=== PATIENT | female | born 1990 | race Caucasian/White ===

== ENCOUNTER 2018-10-31 12:17 | Emergency (ER) | payer MEDICAID ==
[~2018-10-31] VITALS: Ht 170.2 cm; Wt 61.4 kg
[~2018-10-31 12:17] MED LIST: HYDROCODONE-APA1 TAB PO
[2018-10-31 12:25] VITALS: Ht 170.2 cm; Wt 61.4 kg
[2018-10-31] MEDS ORDERED: SEROQUEL25 MG PO (12:28)
[2018-10-31] MEDS ORDERED: TORADOL10 MG PO (17:51)
[2018-10-31 19:12] VITALS: BP 113/87
[2018-11-06] MEDS ORDERED: KLONOPIN0.5 MG PO (15:00)
== END 2018-10-31 19:13 | disposition home or self-care (01) ==
LOC: D.ER 12:17
DX: S00.11XA Contusion of right eyelid and periocular area, initial encounter (principal); Y04.2XXA Assault by strike against or bumped into by another person, initial encounter; Y93.89 Activity, other specified; Y92.019 Unspecified place in single-family (private) house as the place of occurrence of the external cause; S62.304A Unspecified fracture of fourth metacarpal bone, right hand, initial encounter for closed fracture; S61.012A Laceration without foreign body of left thumb without damage to nail, initial encounter

== ENCOUNTER 2018-11-07 11:44 | Day surgery (SDC) | payer MEDICAID ==
[~2018-11-07] VITALS: Ht 170.2 cm; Wt 61.2 kg
[~2018-11-07 11:44] MED LIST changes: +KLONOPIN0.5 MG PO; +SEROQUEL25 MG PO; +TORADOL10 MG PO
[2018-11-07 12:14] LABS: MCH 31.2 pg (26.0-34.0); MCHC 33.3 g/dL (31.0-37.0); MCV 93.5 fL (80.0-100.0); MEAN PLATELET VOLUME 10.7 fL (7.4-10.4); RBC 4.49 10x6/uL (4.00-5.40); RDW 14.8 % (11.5-14.5); WBC 9.2 10x3/uL (4.8-10.8)
[2018-11-07 13:09] VITALS: BP 120/86; Ht 170.2 cm; Wt 61.2 kg
[2018-11-07] MEDS ORDERED: HYDROCODON-ACE1 EA10 PO (15:29)
--- NOTE | 2018-11-07 15:43 | NUR ---
ANESTHESIA REPORTED SHORT STAY IN [facility]
--- NOTE | 2018-11-09 09:48 | OP ---
PATIENT NAME: NUNU CHINCHILLA MEDICAL RECORD: [id number] :89 LOCATION:[facility] ADMISSION DATE: SURGEON: JOSÉ MIGUEL AVILA MD DATE OF OPERATION: 11/07/2018 PREOPERATIVE DIAGNOSIS: Displaced right fifth metacarpal fracture. POSTOPERATIVE DIAGNOSIS: Displaced right fifth metacarpal fracture. PROCEDURE: Open reduction internal fixation of displaced right fourth metacarpal midshaft fracture. SURGEON: José Miguel Avila MD ANESTHESIA: General. INTRAOPERATIVE COMPLICATIONS: None. SUMMARY OF PATHOLOGIC FINDINGS: The patient was indeed found to have a displaced midshaft fracture that reduced nicely and was amenable to plate fixation with the VariAx 2.3 double row plate system. OPERATIVE SUMMARY IN DETAIL: After obtaining the appropriate preoperative orthopedic surgery consent as well as anesthetic consultation, evaluation and clearance, the patient was brought to the operating room and placed on the operating table in supine position. After general laryngeal mask airway was administered, tourniquet was placed over the proximal aspect of the right upper extremity. Right upper extremity was then prepped and draped in routine sterile fashion. The arm was elevated and exsanguinated. Tourniquet inflated to 250 mmHg. Mid linear incision was taken down and gently moved to the periosteum. The periosteum was elevated. Fracture was identified. Interposed hematoma was removed. The fracture was reduced and held in reduction in place while the plate was applied under fluoroscopic guidance. After combination of both compression and locking screws were applied by the 2 x 4 double row 2.3 plate, radiographs were taken and submitted for radiologist for final review. Wound was then irrigated and closed with 2-0 Vicryl followed by 4-0 Prolene. Sterile dressings were applied. Tourniquet was deflated. The patient was awakened and taken to the recovery room in stable condition. All final needle and sponge counts were correct. TRANSINT:[id number] Voice Confirmation ID: [id number] DOCUMENT ID: [id number] MARGARITA PETIT, JOSÉ MIGUEL STERN at 0948 CC: [id number] DICTATION DATE: 11/07/18 1532 BUFFING WHEEL PRESSER: 11/07/18 2250 [facility] 11/07/18 [place] [address]
== END 2018-11-07 17:20 | disposition home or self-care (01) ==
LOC: D.OPS 11:44 → D.PAN 13:45 → D.OPS 17:20 → D.PAN 18:50 → D.OPS 18:50 → D.PAN 20:30
PROVIDERS: Anesthesiology; ATTEND Orthopaedic Surgery
DX: S62.326A Displaced fracture of shaft of fifth metacarpal bone, right hand, initial encounter for closed fracture (principal); Z01.812 Encounter for preprocedural laboratory examination; X58.XXXA Exposure to other specified factors, initial encounter

== ENCOUNTER 2019-06-16 08:20 | Emergency (ER) | payer MEDICAID ==
[~2019-06-16] VITALS: Ht 170.2 cm; Wt 65.0 kg
[~2019-06-16 08:20] MED LIST changes: +HYDROCODON-ACE1 EA10 PO
[2019-06-16 08:32] VITALS: BP 132/75; Ht 170.2 cm; Wt 65.0 kg
[2019-06-16] MEDS ORDERED: PHENERGAN25 M1 PO (08:35)
[2019-06-16] MEDS ORDERED: HYDROCODONE-A1 UDTA2 PO (09:05)
== END 2019-06-16 09:35 | disposition home or self-care (01) ==
LOC: D.ER 08:20
DX: M25.571 Pain in right ankle and joints of right foot (principal); S99.911A Unspecified injury of right ankle, initial encounter; W19.XXXA Unspecified fall, initial encounter

== ENCOUNTER 2019-07-26 01:59 | Inpatient (IN) | payer MEDICAID ==
[~2019-07-26] VITALS: Ht 170.2 cm; Wt 69.1 kg
[~2019-07-26 01:59] MED LIST changes: +HYDROCODONE-A1 UDTA2 PO; +PHENERGAN25 M1 PO
[2019-07-26] MEDS ORDERED: PRENAVITE1 TAB PO (02:28)
[2019-07-26 02:46] LABS: UDS - AMPHET NEGATIVE QUAL (NEGATIVE); UDS - BARB NEGATIVE QUAL (NEGATIVE); UDS - BENZO NEGATIVE QUAL (NEGATIVE); UDS - COCAINE NEGATIVE QUAL (NEGATIVE); UDS - OPIATE NEGATIVE QUAL (NEGATIVE); UDS - PCP NEGATIVE QUAL (NEGATIVE); UDS - THC NEGATIVE QUAL (NEGATIVE)
[2019-07-26 02:50] LABS: APPEARANCE CLOUDY (CLEAR); BACTERIA MANY /hpf (NEGATIVE); BILIRUBIN NEGATIVE (NEGATIVE); COLOR YELLOW (YELLOW); EPITHELIAL CELLS 0-5 /hpf (0-5); GLUCOSE NEGATIVE (NEGATIVE); KETONE MODERATE mg/dL (NEGATIVE); NITRITE POSITIVE (NEGATIVE); PROTEIN 2+ mg/dL (NEGATIVE); SPECIFIC GRAVITY 1.015 (1.005-1.020); UROBILINOGEN NORMAL (NORMAL); WHITE CELLS - URINE >50 /hpf (NEGATIVE)
--- NOTE | 2019-07-26 03:51 | NUR ---
REQUESTING TYLENOL FOR INCREASING BACK PAIN THAT WAS INITIALLY 02/10 [address] 03/[address] ANDERSEN PAGED TO REPORT REQUEST AND NOTIFY THAT ROCEPHIN WAS AVAILABLE ORDERED.
--- NOTE | 2019-07-26 04:06 | NUR ---
20 G PIV STARTED TO LT FA, CBC OBTAINED PER ORDER AND SENT TO LAB. SECURED WITH TEGADERM AND TAPE. TOLERATED WELL.
--- NOTE | 2019-07-26 04:06 | NUR ---
DR. ANDERSEN REBEEPED.
--- NOTE | 2019-07-26 04:17 | NUR ---
DR. ANDERSEN REPAGED TO REPORT PT REQUEST FOR TYLENOL.
[2019-07-26 04:42] LABS: BASOPHILS 0.1 % (0-2); HEMATOCRIT 31.8 % (36.0-48.0); HEMOGLOBIN 10.9 g/dL (12-16); IMMATURE GRANULOCYTES 0.2 % (0-5); LYMPHOCYTES 10.4 % (15-50); MCH 31.5 pg (26.0-34.0); MCHC 34.3 g/dL (31.0-37.0); MCV 91.9 fL (80.0-100.0); MEAN PLATELET VOLUME 10.8 fL (7.4-10.4); MONOCYTES 5.8 % (2-11); NEUTROPHILS 82.5 % (40-80); RBC 3.46 10x6/uL (4.00-5.40); RDW 13.3 % (11.5-14.5); WBC 14.6 10x3/uL (4.8-10.8)
--- NOTE | 2019-07-26 04:47 | NUR ---
RESTING WITH EYES CLOSED IN SEMI FOWLERS POSITION. RESP REGULAR AND UNLABORED, NO S/S OF DISTRESS NOTED. BED IN LOW POSITION WITH SRUP X2. CALL LIGHT AND PHONE WITHIN REACH.
[2019-07-26 04:50] VITALS: BP 112/77; Ht 170.2 cm; Wt 69.1 kg
[2019-07-26 04:56] LABS: PLATELET COUNT 206 10x3/uL (130-400)
--- NOTE | 2019-07-26 05:08 | NUR ---
D5 1/2NS BOLUS COMPLETED. NS HUNG TO INFUSE AT 125 MLS/HR PER ORDER. PT EDUCATED ON PURPOSE OF IVF'S. VERBALIZES UNDERSTANDING. SITTING UP IN BED EATING SANDWICH AND LOOKING AT CELL PHONE. BED IN LOW POSITION WITH SRUP X2. WARM BLANKETS AND EXTRA PILLOWS PROVIDED PER PT REQUEST. CALL LIGHT AND PHONE WITHIN REACH.
--- NOTE | 2019-07-26 05:18 | NUR ---
PT CALLS RN TO ROOM, C/O BEING NAUSEOUS. ORDERS REC'D FOR ZOFRAN 4 MG IVP [id number] NAUSEA/VOMITING.
--- NOTE | 2019-07-26 05:29 | NUR ---
BRODY GIVEN IVP PER ORDER. PT EDUCATED ON MED. REPORTS THAT BACK IN "SLIGHTLY BETTER BUT WAS WORSE WHEN SHE VOIDED." STATES THAT PAIN IS 5-6/10. REPORTS THAT SHE IS UNABLE TO FALL ASLEEP D/T PAIN. WILL REPORT TO DR. ANDERSEN. BED IN LOW POSITION WITH SRUPX2. CALL LIGHT AND PHONE WITHIN REACH.
--- NOTE | 2019-07-26 05:37 | NUR ---
DR. ANDERSEN PAGED TO REPORT PT CONTINUED C/O PAIN FOLLOWING TYLENOL.
--- NOTE | 2019-07-26 05:40 | NUR ---
CALL BACK TO UNIT REC'D FROM DR. ANDERSEN. REPORT GIVEN REGARDING PT CONTINUED C/O BACK PAIN AND INTERVENTIONS DONE UP TO THIS TIME INCLUDING REPOSITIONING, PROVIDING EXTRA PILLOWS AND WARM BLANKETS TO BACK, AND TYLENOL BEING GIVEN. ORDERS REC'D TO CONTINUE WITH CURRENT INTERVENTIONS AND THAT PT MAY ALSO TAKE WARM SHOWER AND TO REINFORCE THAT BACK PAIN WILL DECREASE PYLO STARTS TO IMPROVE.
--- NOTE | 2019-07-26 05:56 | NUR ---
POC DISCUSSED WITH PT, VERBALIZES UNDERSTANDING AND DENIES QUESTIONS. STATES THAT PAIN IS GETTING "SOME BETTER" AND SHE JUST WANTS TO REST FOR NOW. DENIES ADDITIONAL NEEDS. DENIES NAUSEA. BED IN LOW POSITION WITH SRUPX2. CALL LIGHT AND PHONE WITHIN REACH. WILL CONTINUE TO MONITOR.
[2019-07-26 07:32] VITALS: BP 100/60
--- NOTE | 2019-07-26 07:40 | NUR ---
AM ASSESSMENT COMPLETED, VSS, AFEBRILE, RESP EVEN AND UNLABORED, LUNGS CTAB, HEART RRR, TACHYCARDIC AT 105. ABD SOFT AND NONTENDER TO LIGHT PALPATION, GRAVID. SKIN PALE, WARM AND DRY, NO VAGINAL BLEEDING, NO CONTRACTIONS, DOES REPORT RIGHT-SIDED BACK PAIN/FLANK PAIN. PIV SITE TO LEFT FOREARM CLEAN, DRY, INTACT WITH TRANSPARENT BIOOCCLUSIVE DRESSING, PATENT, AND WITHOUT S/SX INFECTION OR INFILTRATION. TOLERATING PO FLUIDS, RELATES SOME NAUSEA BUT TOLERATING REGULAR DIET PROVIDED THIS AM. LIGHTS DIMMED PER PT REQUEST, SIDE RAILS UP X2, BED IN LOW POSITION, BED BRAKES LOCKED, CALL LIGHT AND PERSONAL BELONGINGS WITHIN EASY REACH OF PT. WILL MONITOR FOR CHANGE IN STATUS. REVIEWED PLAN OF CARE, PT STATES UNDERSTANDING OF ALL INFORMATION PROVIDED.
--- NOTE | 2019-07-26 08:45 | NUR ---
PT C/O RIGHT-SIDED FLANK PAIN AND REQUESTING PAIN MEDICATION. STATES "IF ALL I AM GOING TO GED IS TYLENOL I CAN JUST GO HOME AND SLEEP THERE". REVIEWED MD ORDERS, FREQUENCY OF ADMINISTRATION AND NEXT DOSE AVAILABLE, RATIONALE OF MED ORDERS AND NEED FOR IV FLUIDS. BREAKFAST TRAY REMOVED FROM ROOM, CONSUMED 100% MEAL. PT STATES UNDERSTANDING OF INFORMATION PROVIDED, LIGHTS DIMMED PER REQUEST, DENIES OTHER NEEDS OR CONCERNS AT THIS TIME, CALL LIGHT IN EASY REACH. CONTINUE TO MONITOR.
--- NOTE | 2019-07-26 09:47 | NUR ---
rounds completed. pt resting in left lateral position with lights off in room. resp even and unlabored, eyes closed. call light in easy reach. alex, with case management, to pt room after reviewing pt history per records. will monitor.
--- NOTE | 2019-07-26 09:58 | NUR ---
PT C/O BACK/FLANK PAIN TO RIGHT SIDE RATED 7 OF 10 ON NUMERIC PAIN SCALE, TWO PRN TYLENOL GIVEN WITH SIPS OF WATER. PT LYING IN LEFT LATERAL POSITION, HOB ELEVATED 20 DEGREES, SIDE RAILS UP X2, BED IN LOW POSITION, LIGHTS DIMMED. CALL LIGHT IN EASY REACH, WILL MONITOR.
--- NOTE | 2019-07-26 10:09 | NUR ---
DR ANDERSEN IN TO SEE PT. NEW ORDERS RECEIVED AND RELAYED TO PT. SPECIPAN IN BR WITH PT INSTRUCTIONS GIVEN TO URINATE IN HAT AND NURSING STAFF WILL STRAIN URINE. NOTIFIED RADIOLOGY AND SPOKE WITH TIMA TO RELAY NEED FOR U/S OF KIDNEYS ENTERED INTO SeeOn. TIMA SUAREZ WILL NOTIFY TECH TO COME TO L&D GORDY TO SEE PT.
--- NOTE | 2019-07-26 10:12 | MORECARE ---
CASE MANAGEMENT DISCHARGE SUMMARY PATIENT: NUNU CHINCHILLA UNIT: [id number] ADM DATE: 07/26/19 AGE: 28 : [birth year] SEX: F ROOM/BED: D.1278 AUTHOR: SUN FLOWERS PHYSICIAN: REFERRING PHYSICIAN: DARCI ANDERSEN MD DATE OF SERVICE: 07/26/19 Discharge Plan Patient Name: NUNU CHINCHILLA [facility] [facility] 1990 Planned Disposition: Anticipated Discharge Date: Discharge Date: Expected LOS: Initial Reviewer: [email or web address] Initial Review Date: 07/26/2019 Generated: 07/26/19 11:11 am Patient Name: NUNU CHINCHILLA Page [phone] at 1012 All edits/amendments must be made on the electronic document DICTATION DATE: 07/26/19 1011 AUTOMOTIVE SALESPERSON: BEVERLY 07/26/19 1011 RPT#: [id number] DC DATE: STATUS: ADM IN [facility] [address] [place] [address] END OF REPORT
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
--- NOTE | 2019-07-26 10:56 | NUR ---
ON PAIN REASSESSMENT, PT C/O RIGHT-SIDED PAIN RATED 7/10 ON NUMERIC PAIN SCALE, REQUESTS PRN MED; SAME PROVIDED WITH SIPS WATER. REVIEWED MD ORDERS, PLAN OF CARE, NEED TO STRAIN URINE/USE OF SPECIPAN, ENCOURAGED PO INTAKE. ARYALLO PROVIDED PER REQUEST. U/S TECH TO PT ROOM FOR ORDERED U/S KIDNEYS. PT DENIES OTHER NEEDS AT THIS TIME. WILL MONITOR.
--- NOTE | 2019-07-26 11:35 | NUR ---
ROUNDS COMPLETED, PT VOICING THAT SHE IS HUNGRY AND IS READY FOR LUNCH. DISCUSSED LUNCH TIMES AND SNACK OPTIONS. PT STATES WILL WAIT FOR LUNCH TRAY. NAD NOTED, WILL MONITOR.
--- NOTE | 2019-07-26 12:05 | NUR ---
PAIN REASSESSEMENT COMPLETED; PT REPORTS PAIN NOW 4/10 ON NUMERIC PAIN SCALE WILL CONTINUE TO MONITOR.
--- NOTE | 2019-07-26 12:37 | NUR ---
PT ASSISTED OOB TO BR, VOIDING TO SPECIPAN, URINE STRAINED WITH NO SEDIMENT, CRYSTALS, OR STONES NOTED. VOIDED 600 ML URINE. PT STATES ACTIVE MOVEMENT NOTED AND NO ABDOMINAL PAIN/CRAMPING. CONSUMED 75% LUNCH PROVIDED AND FLUIDS ENCOURAGED. PT STATES UNDERSTANDING. WILL MONITOR.
[2019-07-26 12:42] VITALS: BP 107/58
--- NOTE | 2019-07-26 12:50 | NUR ---
PT C/O NAUSEA, REQUESTS ZOFRAN AND SAME PROVIDED. NO OTHER REQUESTS NEEDED. PT FAMILY MEMBER TO VISIT. CALL LIGHT IN EASY REACH.
--- NOTE | 2019-07-26 13:40 | NUR ---
ROUNDS COMPLETED, DENIES NEEDS OR CONCERNS, DENIES NAUSEA, RESTING WITH EYES CLOSED RESP EVEN AND UNLABORED, CALL LIGHT IN EASY REACH. WILL MONITOR.
--- NOTE | 2019-07-26 14:55 | NUR ---
rounds completed, pt resting with eyes closed, respiration even and unlabored, call light in easy reach, nad noted. continue to monitor.
--- NOTE | 2019-07-26 15:30 | NUR ---
PHONED DR ANDERSEN WITH ULTRASOUND RESULTS PERFORMED EARLIER TODAY UPON REPORT AVAILABILITY IN [place], NEW ORDERS RECEIVED, VERIFIED VIA TORB, RELAYED TO PT, AND ENTERED. PT STATES UNDERSTANDING. WILL MONITOR FOR CHANGE IN STATUS. NAD NOTED ON ROUNDS.
[2019-07-26 15:49] VITALS: BP 99/69
[2019-07-26 15:49] LABS: BASOPHILS 0.1 % (0-2); EOSINOPHILS 2.1 % (0-7); HEMATOCRIT 27.1 % (36.0-48.0); HEMOGLOBIN 9.1 g/dL (12-16); IMMATURE GRANULOCYTES 0.3 % (0-5); LYMPHOCYTES 16.9 % (15-50); MCH 31.3 pg (26.0-34.0); MCHC 33.6 g/dL (31.0-37.0); MCV 93.1 fL (80.0-100.0); MEAN PLATELET VOLUME 10.6 fL (7.4-10.4); MONOCYTES 9.2 % (2-11); NEUTROPHILS 71.4 % (40-80); PLATELET COUNT 172 10x3/uL (130-400); RBC 2.91 10x6/uL (4.00-5.40); RDW 13.4 % (11.5-14.5)
--- NOTE | 2019-07-26 15:49 | NUR ---
SPECIALTY SALES REPRESENTATIVE HERE TO DRAW CBC AND CMP. VSS, AFEBRILE, TOLERATING PO INTAKE, PO FLUIDS ENCOURAGED. PT REQUESTS JELLO AND PUDDING, SAME PROVIDED. NO OTHER NEEDS VOICED AT THIS TIME, CONTINUE TO MONITOR.
[2019-07-26 15:53] LABS: WBC 9.8 10x3/uL (4.8-10.8)
[2019-07-26 16:17] LABS: ALBUMIN 2.2 g/dL (3.4-5.0); ALKALINE PHOSPHATASE 44 U/L (46-116); ALT (SGPT) 10 U/L (10-68); CALC OSMOLALITY 275 mosm/kg (275-300); CARBON DIOXIDE 25.1 mmol/L (21.0-32.0); CHLORIDE - SERUM 108 mmol/L (98-107); CREATININE - SERUM 0.6 mg/dL (0.6-1.3); GLUCOSE 86 mg/dL (74-106); POTASSIUM - SERUM 3.7 mmol/L (3.5-5.1); SODIUM 140 mmol/L (136-145); UREA NITROGEN 7 mg/dL (7-18); eGFR NON AFRICAN AMERICAN > 90 mL/min (90-120)
--- NOTE | 2019-07-26 16:45 | NUR ---
pt consumed 75% dinner tray, no nausea or complaints at this time, resp even and unlabored, call light in easy reach, will monitor.
--- NOTE | 2019-07-26 17:19 | NUR ---
pt c/o right-sided abdominal/flank pain rated 6/10 0n numeric pain scale, prn tylenol given with sips of water, cup of water refreshed and to pt bedside. resp even and unlabored, emptied 450 ml yellow urine through strainer with scant amount of sediment noted in filter. pt lying on right lateral side at this time, resp even and unlabored, call light in easy reach of pt, side rails up x2, bed in low position, continue to monitor.
--- NOTE | 2019-07-26 18:45 | NUR ---
ROUNDS COMPLETED, PT STATES SHE IS INCREASED RIGHT SIDED PAIN, REQUESTS PRN PAIN MED UPON AVAILABILITY. RESP EVEN AND UNLABORED, NAD, CALL LIGHT IN EASY REACH, DENIES OTHER NEEDS AT THIS TIME, WILL MONITOR.
--- NOTE | 2019-07-26 19:08 | NUR ---
BEDSIDE REPORT GIVEN TO Ruddy TESFAYE RN.
[2019-07-26 19:10] VITALS: BP 107/76
--- NOTE | 2019-07-26 19:10 | NUR ---
BEDSIDE REPORT REC'D FROM Catherine HERNANDEZ RN. PT REC'D IN SEMI-FOWLERS POSITION, TEARFUL C/O PAIN 7/10 TO RIGHT SIDE, FLANK REGION, AND BACK, NORCO PROVIDED PER ORDER AND PT REQUEST. REPORTS THAT PAIN WAS "FINE UNTIL I WENT TO THE BATHROOM THE LAST TIME." WARM BLANKET ALSO PROVIDED PER PT REQUEST. SHIFT ASSESSMENT COMPLETED PER FLOWSHEET. FHT'S DOPPLERED 150'S-160'S, REPORTS + FM, DENIES VAG BLEEDING OR SPOTTING, UC'S,AND ABD PAIN. VSS. POC DISCUSSED WITH PT. ENCOURAGED PO FLUID INTAKE OF WATER AND CRANBERRY JUICE. NEW BAG NS HUNG TO INFUSE VIA PUMP AT 150 MLS/HR PER ORDER. FRESH ICE WATER AND LARGE GLASS CRANBERRY JUICE PROVIDED. BED IN LOW POSITION WITH SRUPX2. CALL LIGHT AND PHONE WITHIN REACH. WILL CONTINUE TO MONITOR.
--- NOTE | 2019-07-26 19:18 | NUR ---
SIGNIFICANT OTHER TO BEDSIDE WITH MEAL AND TOOTHBRUSH FOR PT. PT REPORTS THAT THIS FOB. PT REQUEST RN DISCUSS POC WITH SIGNIFICANT OTHER. POC DISCUSSED AND QUESTIONS ANSWERED REGARDING ANTIBIOTIC AND REASONS FOR STRAINING URINE.
--- NOTE | 2019-07-26 19:39 | NUR ---
C/O NAUSEA, REQUESTS ZOFRAN, GIVEN PER ORDER AND PT REQUEST. PAIN REASSESSMENT COMPLETED, 10/13. STATES THAT NAUSEA BEGAN FOLLOWING EATING MEAL BROUGHT TO HER BY SIGNIFICANT OTHER. SIGNIFICANT OTHER REMAINS AT BEDSIDE CONVERSING WITH PT.
--- NOTE | 2019-07-26 20:15 | NUR ---
CALLS VIA CALL LIGHT. 500 MLS CLOUDY LIGHT YELLOW URINE STRAINED WITH NO SOLID PARTICLES NOTED. PT UP IN ROOM, REQUEST TO CHANGE INTO CLOTHES, PIV SL FOR PT TO CHANGE INTO SHIRT AND RESTARTED. REPORTS INCREASED IN BACK PAIN FOLLOWING VOID TO 6-7/10, DENIES NEED FOR INTERVENTION AT THIS TIME, STATES THAT SHE IS GOING TO TRY TO REST IN BED. BED IN LOW POSITION WITH SRUP X2. CALL LIGHT AND PHONE WITHIN REACH. WILL CONTINUE TO MONITOR.
--- NOTE | 2019-07-26 21:17 | NUR ---
REQUESTING HEATING PAD FROM HOME FOR BACK, DISCUSSED BEING UNABLE TO BRING HEATING PAD FROM HOME FOR USE IN HOSPITAL. REPORTS THAT WARM BLANKETS ARE NOT HELPING BACK PAIN. DISCUSSED K-PAD WITH PT, REQUESTS K-PAD. DR. ANDERSEN CONTACTED AND ORDERS REC'D TO PROVIDE PT WITH K-PAD.
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
--- NOTE | 2019-07-26 22:43 | NUR ---
LYING ON LEFT SIDE RESTING WITH EYES CLOSED. PT DOES NOT OPEN EYES UPON RN ENTRY TO ROOM. RESP REGULAR AND UNLABORED, NO S/S OF DISTRESS NOTED. BED IN LOW POSITION WITH SRUPX2. CALL LIGHT AND PHONE WITHIN REACH. WILL CONTINUE TO MONITOR.
[2019-07-26 23:55] VITALS: BP 92/51
--- NOTE | 2019-07-26 23:55 | NUR ---
C/O CONSTANT DULL BACK ACHE 5-6/10, REQUESTS TYLENOL AND GIVEN PER ORDER AND REQUEST. I&O DONE, ENCOURAGED PT TO CONTINUE PUSHING PO FLUIDS, 250 MLS WATER AND 480 MLS CRANBERRY JUICE TAKEN IN SINCE THIS RN'S SHIFT BEGAN. UP TO BR TO VOID, 600 MLS CLOUDY LIGHT YELLOW URINE STRAINED WITH NO SOLID PARTICLES NOTED. BACK TO BED, REPORTS THAT K-PAD HAS HELPED WITH BACK PAIN. STATES THAT SHE JUST WANTS TO SLEEP. BED IN LOW POSITION WITH SRUP X2. CALL LIGHT AND PHONE WITHIN REACH. WILL CONTINUE TO MONITOR.
--- NOTE | 2019-07-27 01:46 | NUR ---
NEW BAG NS HUNG. RATE DECREASED TO 125 MLS/HR PER STANDING ORDER. SITTING UP IN BED EATING JELLO. DENIES NEEDS AT THIS TIME. BED IN LOW POSITION WITH SRUP X2. CALL LIGHT AND PHONE WITHIN REACH.
[2019-07-27 03:28] VITALS: BP 99/61
--- NOTE | 2019-07-27 03:28 | NUR ---
1 GM ROCEPHIN HUNG TO INFUSE OVER 30 MINUTES PER ORDER VIA PUMP. C/O CONSTANT BACK ACHING 02/10, REQUEST NORCO AND PROVIDED PER ORDER. DENIES ADDITIONAL NEEDS AT THIS TIME. VSS. DENIES ABD PAIN/CRAMPING. NO VOID NOTED SINCE PREVIOUS VOID, DENIES URGE TO GO. NO WATER OR CRANBERRY JUICE NOTED TO BE DRANK, ENCOURAGED PT TO DRINK FLUID, VERBALIZES UNDERSTANDING. BED IN LOW POSITION WITH SRUP X2. CALL LIGHT AND PHONE WITHIN REACH. WILL CONTINUE TO MONITOR.
--- NOTE | 2019-07-27 03:59 | NUR ---
RESTING QUIETLY WITH EYES CLOSED LAYING ON RIGHT SIDE. RESP REGULAR AND UNLABORED, NO S/S OF DISTRESS NOTED. BED IN LOW POSITION WITH SRUPX2. CALL LIGHT AND PHONE WITHIN REACH. WILL CONTINUE TO MONITOR.
--- NOTE | 2019-07-27 06:23 | NUR ---
RESTING WITH EYES CLOSED LAYING ON RIGHT SIDE. RESP REGULAR AND UNLABORED, NO S/S OF DISTRESS NOTED. BED IN LOW POSITION WITH SRUPX2. CALL LIGHT AND PHONE WITHIN REACH. WILL CONTINUE TO MONITOR.
--- NOTE | 2019-07-27 07:13 | NUR ---
REPORT TO DAY SHIFT. PT RESTING WITH EYES CLOSED. RESP REGULAR AND UNLABORED, NO S/S OF DISTRESS NOTED. BED REMAINS IN LOW POSITION WITH SRUP X2. CALL LIGHT AND PHONE WITHIN REACH.
--- NOTE | 2019-07-27 07:20 | NUR ---
ASSUMED CARE OF THIS PATIENT AFTER REPORT. SLEEPING ON RIGHT SIDE, RESPIRATIONS EVEN. WILL COMPLETE SHIFT ASSESSMENT WHEN AWAKE. SIDE RAILS UP X 2.
--- NOTE | 2019-07-27 08:36 | NUR ---
AWAKE, ORIENTED, SHIFT ASSESSMENT COMPLETED. FEELING BETTER TODAY THAN WHEN SHE FIRST CAME INTO HOSPITAL. ASKED ABOUT GOING HOME. INFORMED THAT DR ANDERSEN WOULD BE IN TODAY AND MAKE THAT DECISION. JUST RETURNED FROM BATHROOM. VOIDED 900 CLOUDY YELLOW URINE, URINE STRAINED SEDIMENT NOTED BUT NO STONES NOTED. SAYS SHE WAS NOT HAVING PAIN UNTIL AFTER GOING TO THE BATHROOM. NOW 8/10 ACHING RIGHT SIDE AND BACK. DESIRES TO WAIT 30 MINS BEFORE GETTING PAIN MEDICATION TO SEE IF IT GOES AWAY. USING K-PAD TO RIGHT BACK. FHTS AT 130-140'S. SAYS SHE FEELS THE BABY OCCASIONALLY. DISCUSSED MOVEMENT EARLY GESTATION. ALSO DISCUSSED IMPORTANCE OF PO HYDRATION, PROPER WIPING, AVOID HOLDING URINE, ENCOURAGED VOIDING Q 2 HOURS. PERINEAL HYGIENE. VERBALIZED UNDERSTANDING. SIDE RAILS UP X 2, CALL LIGHT IN REACH. NS INFUSING AT 125 ML/HR PER [facility] PUMP INTO LEFT WRIST. NO SIGNS OF INFILTRATION.
[2019-07-27 08:53] VITALS: BP 91/53
--- NOTE | 2019-07-27 09:04 | NUR ---
DR ANDERSEN ON L&D. PLANS TO DC PATIENT HOME.
--- NOTE | 2019-07-27 09:05 | NUR ---
PT NOW REQUESTING PAIN MEDICATION.
--- NOTE | 2019-07-27 09:08 | NUR ---
TYLENOL 650MG GIVEN PO FOR RELIEF OF 6/10 RIGHT BACK PAIN. NO ACUTE DISTRESS NOTED, LOOKING AT CELL PHONE. DECLINES FLU VACCINE. SIDE RAILS UP X 2, CALL LIGHT IN REACH.
--- NOTE | 2019-07-27 09:17 | NUR ---
Isha RECEIVED FROM DR ANDERSEN TO [facility].
[2019-07-27] MEDS ORDERED: AUGMENTIN 875-11 TAB PO (09:47)
[2019-07-27] MEDS ORDERED: FLAGYL500 MG PO (09:48)
--- NOTE | 2019-07-27 10:16 | NUR ---
IV DC'D WITH TIP INTACT. DC INSTRUCTIONS COMPLETED INCLUDING, S&S INFECTION, DANGER SIGNS, UTI/PYELO DC INSTRUCTIONS, URINE STRAINING, MEDICATION ADMINISTRATION AND FOLLOW-UP. WANTED TO DRIVE SELF BUT INSTRUCTED PT SHE NEEDS SOMEONE TO PICK HER UP SINCE SHE HAD NARCOTICS. FAMILY MEMBER WILL BE PICKING HER UP. PT GIVEN PRESCRIPTIONS AND WRITTEN DC INSTRUCTIONS. ALSO REVIEWED S&S PTL. VERBALIZED UNDERSTANDING. REFUSED FLU VACCINE. HAS F/U APPOINTMENT SCHEDULED FOR SundayAUG 04.
--- NOTE | 2019-07-27 10:36 | NUR ---
AMBULATED TO DESK, SAYS HER RIDE IS NOT GOING TO BEABLE TO PICK HER UP NOW. STATES "I'M FINE TO DRIVE". NO DIZZINESS, NO DISTRESS NOTED. 6 1/2 HOURS SINCE PT RECEIVED NORCO 5 MG. DESIRES TO AMBULATE OFF UNIT. HAS ALL BELONGINGS IN HAND. SAYS SHE DROVE HER AND HER CAR IS IN PARKING LOT. DC'D AT THIS TIME.
--- NOTE | 2019-07-27 11:13 | NUR ---
PATIENT CALLED THIS UNIT TO LET THIS RN KNOW SHE MADE IT HOME.
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
== END 2019-07-27 10:36 | disposition home or self-care (01) | DRG 832 ==
LOC: D.ER 01:59 → D.LDO 01:59 → EDSTATUS 02:16 → D.LD 03:20
PROVIDERS: ADMIT Obstetrics & Gynecology; ATTEND Obstetrics & Gynecology
DX: O23.42 Unspecified infection of urinary tract in pregnancy, second trimester (principal); O98.812 Other maternal infectious and parasitic diseases complicating pregnancy, second trimester; T76.11XA Adult physical abuse, suspected, initial encounter; Z3A.23 23 weeks gestation of pregnancy; O23.02 Infections of kidney in pregnancy, second trimester; O99.342 Other mental disorders complicating pregnancy, second trimester; F31.9 Bipolar disorder, unspecified

== ENCOUNTER 2019-11-14 11:39 | Outpatient (CLI) | payer OTHER ==
[2019-07-26 04:50] VITALS: BMI 23.8
[~2019-11-14 11:39] MED LIST changes: +AUGMENTIN 875-11 TAB PO; +FLAGYL500 MG PO; +PRENAVITE1 TAB PO
[2019-11-14 13:02] LABS: UDS - AMPHET NEGATIVE QUAL (NEGATIVE); UDS - BARB NEGATIVE QUAL (NEGATIVE); UDS - BENZO NEGATIVE QUAL (NEGATIVE); UDS - COCAINE NEGATIVE QUAL (NEGATIVE); UDS - OPIATE NEGATIVE QUAL (NEGATIVE); UDS - PCP NEGATIVE QUAL (NEGATIVE); UDS - THC NEGATIVE QUAL (NEGATIVE)
[2019-11-14 13:11] LABS: BILIRUBIN NEGATIVE (NEGATIVE); GLUCOSE NEGATIVE (NEGATIVE); KETONE NEGATIVE (NEGATIVE); NITRITE NEGATIVE (NEGATIVE); SPECIFIC GRAVITY 1.005 (1.005-1.020); UROBILINOGEN NORMAL (NORMAL)
[2019-11-14 13:12] LABS: BACTERIA FEW /hpf (NEGATIVE); EPITHELIAL CELLS OCC /hpf (0-5); RED CELLS - URINE OCC /hpf (0-5); WHITE CELLS - URINE RARE /hpf (NEGATIVE)
== END 2019-11-14 13:08 | disposition home or self-care (01) ==
LOC: D.LDO 11:39
PROVIDERS: ATTEND Student in an Organized Health Care Education/Training Program
DX: O36.8130 Decreased fetal movements, third trimester, not applicable or unspecified (principal); Z3A.40 40 weeks gestation of pregnancy

== ENCOUNTER 2021-01-30 19:37 | Emergency (ER) | payer OTHER ==
[~2021-01-30] VITALS: Ht 170.2 cm; Wt 57.7 kg
[2021-01-30 19:41] VITALS: Ht 170.2 cm; Wt 57.7 kg
[2021-01-30] MEDS ORDERED: FOLIC ACID1 MG PO (19:43)
[2021-01-30] MEDS ORDERED: PREDNISONE10 MG PO (19:43)
[2021-01-30] MEDS ORDERED: TREXALL7.5 MG PO (19:43)
[2021-01-30] MEDS ORDERED: KLONOPIN0.5 MG PO (19:44)
[2021-01-30] MEDS ORDERED: BUPRENORPHINE HC8 MG SL (19:46)
[2021-01-30 20:09] LABS: BASOPHILS 0.7 % (0-2); EOSINOPHILS 1.5 % (0-7); HEMATOCRIT 38.3 % (36.0-48.0); HEMOGLOBIN 12.7 g/dL (12-16); LYMPHOCYTES 19.2 % (15-50); MCHC 33.2 g/dL (31.0-37.0); MCV 87.4 fL (80.0-100.0); MEAN PLATELET VOLUME 9.5 fL (7.4-10.4); MONOCYTES 7.6 % (2-11); RBC 4.38 10x6/uL (4.00-5.40); RDW 13.6 % (11.5-14.5); WBC 12.6 10x3/uL (4.8-10.8)
[2021-01-30 20:10] LABS: PLATELET COUNT 298 10x3/uL (130-400)
[2021-01-30 20:28] LABS: ANION GAP 15.9 mmol/L (8-16); CALCIUM 9.4 mg/dL (8.5-10.1); CARBON DIOXIDE 25.9 mmol/L (21.0-32.0); CREATININE - SERUM 1.1 mg/dL (0.6-1.3); POTASSIUM - SERUM 3.8 mmol/L (3.5-5.1)
[2021-01-30 20:34] LABS: ALBUMIN 4.4 g/dL (3.4-5.0); BILIRUBIN - TOTAL 1.04 mg/dL (0.2-1.3); MAGNESIUM - SERUM 2.2 mg/dL (1.8-2.4); PROTEIN - SERUM 7.4 g/dL (6.4-8.2)
[2021-01-30 20:50] LABS: BACTERIA MANY HPF (NONE SEEN); BILIRUBIN NEGATIVE (NEGATIVE); KETONE NEGATIVE (NEGATIVE); NITRITE POSITIVE (NEGATIVE); UROBILINOGEN NORMAL mg/dL (< 2)
[2021-01-30 20:51] LABS: HCG URINE NEGATIVE (NEGATIVE)
[2021-01-30 21:05] LABS: UDS - AMPHET POSITIVE QUAL (NEGATIVE); UDS - BARB NEGATIVE QUAL (NEGATIVE); UDS - BENZO POSITIVE QUAL (NEGATIVE); UDS - COCAINE NEGATIVE QUAL (NEGATIVE); UDS - OPIATE NEGATIVE QUAL (NEGATIVE); UDS - PCP NEGATIVE QUAL (NEGATIVE); UDS - THC NEGATIVE QUAL (NEGATIVE)
[2021-01-31] MEDS ORDERED: LEVOFLOXACIN500 MG PO (05:50)
[2021-01-31 05:54] VITALS: BP 133/90
== END 2021-01-31 05:54 | disposition home or self-care (01) ==
LOC: D.ER 19:37
PROVIDERS: Family Medicine
DX: F15.10 Other stimulant abuse, uncomplicated (principal); M32.9 Systemic lupus erythematosus, unspecified